=== PATIENT | male | born 1985 | race African-American/Black ===

== ENCOUNTER 2019-07-13 15:36 | Emergency (ER) | payer SELFPAY ==
--- NOTE | 2019-07-13 16:12 | RAD REPORT ---
EXAM DESCRIPTION: RAD - Chest Single View - 07/13/2019 4:05 pm CLINICAL HISTORY: CHEST PAIN Chest pain. COMPARISON: No comparisons FINDINGS: Portable technique limits examination quality. The lungs are grossly clear. The heart is normal in size. No displaced fractures. IMPRESSION: No acute intrathoracic process suspected.
[2019-07-13 16:33] LABS: Absolute Lymphocytes (CBC) 1.8 K/uL (0.7-4.9); Hematocrit 41.2 % (39.6-49.0); Lymphocytes % 23.5 % (15.3-44.8); MPV 7.2 fL (7.6-11.3); RBC Red Blood Cell Count 4.32 M/uL (4.33-5.43)
[2019-07-13 16:37] LABS: Protime INR 0.96
[2019-07-13 16:54] LABS: ALT/SGPT 34 U/L (12-78); AST/SGOT 24 U/L (15-37); Albumin 3.2 g/dL (3.4-5.0); Alkaline Phosphatase 91 U/L (45-117); BUN Blood Urea Nitrogen 13 mg/dL (7-18); Bicarbonate 26 mmol/L (21-32); Bilirubin Direct < 0.1 mg/dL (0-0.2); Bilirubin Total 0.2 mg/dL (0.2-1.0); Creatine Phosphokinase 235 U/L (39-308); Glucose Level 110 mg/dL (74-106); Magnesium 2.1 mg/dL (1.8-2.4); NT PRO-BNP 7 pg/mL (<125); Potassium 4.1 mmol/L (3.5-5.1); Protein, Total 6.4 g/dL (6.4-8.2); Sodium Level 138 mmol/L (136-145); Troponin (Emerg Dept Use Only) < 0.02 ng/mL (0.0-0.045)
--- NOTE | 2019-07-13 17:15 | EKG ---
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
[2019-07-13] MEDS ORDERED: CYCLOBENZAPRINE 10 MG TAB ONE (17:24)
[2019-07-13] MEDS ORDERED: NA CHLORIDE 0.9% 1,000 ML ONE (17:24)
--- NOTE | 2019-07-13 19:14 | EDPHYS ---
Physician Documentation [facility] Name: Isauro Meza Age: 34 yrs Sex: Male : 1985 Arrival Date: 07/13/2019 Time: 15:39 Bed 5 Private MD: ED Physician Tony Mcduffie HPI: 07/13 16:21 This 34 yrs old Black Male presents to ER via EMS with complaints of syncope. 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 Onset: The snw symptoms/episode began/occurred suddenly, just prior to arrival. Severity of symptoms: At their worst the symptoms were moderate. The patient has not experienced similar symptoms in the past. The patient has not recently seen a physician. hx of migraines, "I take Excedrin all day every day". Historical: - Allergies: 15:43 No Known Allergies; ph - Home Meds: 15:43 None [Active]; ph - PMHx: 15:43 None; ph - PSHx: 15:43 Hernia repair; elbow; ph - Immunization history:: Adult Immunizations unknown. - Social history:: Smoking status: Patient uses tobacco products, denies chronic smoking, but will smoke occasionally. - Ebola Screening: : No symptoms or risks identified at this time. ROS: 16:20 Constitutional: Negative for fever, chills, and weight loss, Eyes: Negative for injury, snw pain, redness, and discharge, ENT: Negative for injury, pain, and discharge, Neck: Negative for injury, pain, and swelling, Cardiovascular: Negative for chest pain, palpitations, and edema, Respiratory: Negative for shortness of breath, cough, wheezing, and pleuritic chest pain, Abdomen/GI: Negative for abdominal pain, nausea, vomiting, diarrhea, and constipation, Back: Negative for injury and pain, : Negative for injury, bleeding, discharge, and swelling, MS/Extremity: Negative for injury and deformity, Skin: Negative for injury, rash, and discoloration. 16:20 Neuro: Positive for syncope. Exam: 16:20 Head/Face: Normocephalic, atraumatic. Eyes: Pupils equal round and reactive to light, snw extra-ocular motions intact. Lids and lashes normal. Conjunctiva and sclera are non-icteric and not injected. Cornea within normal limits. Periorbital areas with no swelling, redness, or edema. ENT: Nares patent. No nasal discharge, no septal abnormalities noted. Tympanic membranes are normal and external auditory canals are clear. Oropharynx with no redness, swelling, or masses, exudates, or evidence of obstruction, uvula midline. Mucous membranes moist. Neck: Trachea midline, no thyromegaly or masses palpated, and no cervical lymphadenopathy. Supple, full range of motion without nuchal rigidity, or vertebral point tenderness. No Meningismus. Chest/axilla: Normal chest wall appearance and motion. Nontender with no deformity. No lesions are appreciated. Cardiovascular: Regular rate and rhythm with a normal S1 and S2. No gallops, murmurs, or rubs. Normal PMI, no JVD. No pulse deficits. Respiratory: Lungs have equal breath sounds bilaterally, clear to auscultation and percussion. No rales, rhonchi or wheezes noted. No increased work of breathing, no retractions or nasal flaring. 16:20 Back: No spinal tenderness. No costovertebral tenderness. Full range of motion. Skin: Warm, dry with normal turgor. Normal color with no rashes, no lesions, and no evidence of cellulitis. MS/ Extremity: Pulses equal, no cyanosis. Neurovascular intact. Full, normal range of motion. Neuro: Awake and alert, GCS 15, oriented to person, place, time, and situation. Cranial nerves II-XII grossly intact. Motor strength 5/5 in all extremities. Sensory grossly intact. Cerebellar exam normal. Normal gait. Psych: Awake, alert, with orientation to person, place and time. Behavior, mood, and affect are within normal limits. 16:20 Constitutional: The patient appears alert, anxious, uncomfortable, unkempt. 16:20 Abdomen/GI: Inspection: abdomen appears normal, Bowel sounds: normal, Palpation: mild abdominal tenderness, in all quadrants. Vital Signs: 15:41 BP 144 / 85; Pulse 85; Resp 18; Temp 98.5(TE); Pulse Ox 100% on R/A; Weight 83.91 kg; ph Height 5 ft. 10 in. (177.80 cm); 17:37 BP 131 / 87; Pulse 78; Resp 18; Pulse Ox 99% on R/A; ph 18:24 BP 140 / 88 Supine; Pulse 70; ph 18:24 BP 134 / 85 Sitting; Pulse 74; ph 18:24 BP 143 / 84 Standing; Pulse 76; Resp 18; Pulse Ox 98% on R/A; ph 19:25 BP 144 / 84; Pulse 72; Resp 16 S; Pulse Ox 99% on R/A; ca1 15:41 Body Mass Index 26.54 (83.91 kg, 177.80 cm) ph MDM: 16:03 Patient medically screened. snw 19:15 Data reviewed: vital signs, nurses notes. Data interpreted: Pulse oximetry: on room air snw is 98 %. Interpretation: normal. Counseling: I had a detailed discussion with the patient and/or guardian regarding: the historical points, exam findings, and any diagnostic results supporting the discharge/admit diagnosis, the presence of at least one elevated blood pressure reading (>120/80) during this emergency department visit, lab results, radiology results, the need for outpatient follow up, to return to the emergency department if symptoms worsen or persist or if there are any questions or concerns that arise at home. Special discussion: Based on the history and exam findings, there is no indication for further emergent testing or inpatient evaluation. I discussed with the patient/guardian the need to see the equity sales assistant for further evaluation of the symptoms. I discussed with the patient/guardian the need to see the primary care provider for further evaluation of the symptoms. 07/13 15:49 Order name: Basic Metabolic Panel; Complete Time: 16:58 snw 07/13 15:49 Order name: CBC with Diff; Complete Time: 16:58 snw 07/13 15:49 Order name: LFT's; Complete Time: 16:58 snw 07/13 15:49 Order name: Magnesium; Complete Time: 16:58 snw 07/13 15:49 Order name: NT PRO-BNP; Complete Time: 16:58 snw 07/13 15:49 Order name: PT-INR; Complete Time: 16:58 snw 07/13 15:49 Order name: Troponin (emerg Dept Use Only); Complete Time: 16:58 snw 07/13 15:49 Order name: XRAY Chest (1 view); Complete Time: 16:17 snw 07/13 15:49 Order name: EKG; Complete Time: 15:50 snw 07/13 15:49 Order name: CPK; Complete Time: 16:58 snw 07/13 16:13 Order name: ASA; Complete Time: 17:14 snw 07/13 18:36 Order name: Troponin (emerg Dept Use Only); Complete Time: 19:13 snw 07/13 15:49 Order name: Cardiac monitoring; Complete Time: 16:24 snw 07/13 15:49 Order name: EKG - Nurse/Tech; Complete Time: 16:34 snw 07/13 15:49 Order name: IV Saline Lock; Complete Time: 16:25 snw 07/13 15:49 Order name: Labs collected and sent; Complete Time: 16:25 snw 07/13 15:49 Order name: O2 Per Protocol; Complete Time: 16:25 snw 07/13 15:49 Order name: O2 Sat Monitoring; Complete Time: 16:25 snw 07/13 18:36 Order name: EKG; Complete Time: 18:37 snw Administered Medications: 17:30 Drug: NS 0.9% 1000 ml Route: IV; Rate: 1 bolus; Site: right antecubital; ph 17:30 Drug: Flexeril 10 mg Route: PO; ph Disposition: 07/14 07:13 Co-signature as Attending Physician, Tony Mcduffie MD I agree with the assessment and kdr plan of care. Disposition: 07/13/19 19:14 Discharged to Home. Impression: Volume depletion, Syncope and collapse. - Condition is Stable. - Discharge Instructions: Dehydration, Adult, Hypertension, Syncope, Rehydration, Adult. - Medication Reconciliation Form, Thank You Letter, Antibiotic Education, Prescription Opioid Use form. - Follow up: Private Physician; When: 2 - 3 days; Reason: Recheck today's complaints, Continuance of care, Re-evaluation by your physician. Follow up: Emergency Department; When: As needed; Reason: Worsening of condition. Signatures: Dispatcher [employer] Tony Beauchamp MD MD kdr Therrien, Shelly, DRYER OPERATOR-C DRYER OPERATOR-Csnw Angi Parks RN RN ph Acob, Clarita RN RN ca1 Corrections: (The following items were deleted from the chart) 07/13 19:36 19:14 07/13/2019 19:14 Discharged to Home. Impression: Volume depletion; Syncope and ca1 collapse. Condition is Stable. Forms are Medication Reconciliation Form, Thank You Letter, Antibiotic Education, Prescription Opioid Use. Follow up: Private Physician; When: 2 - 3 days; Reason: Recheck today's complaints, Continuance of care, Re-evaluation by your physician. Follow up: Emergency Department; When: As needed; Reason: Worsening of condition. snw
--- NOTE | 2019-07-13 19:14 | ER ---
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 Transition of care: patient was not received from another setting of care. Onset of symptoms was July 13, 2019. Risk Assessment: Do you want to hurt yourself or someone else? Patient reports no desire to harm self or others. Initial Sepsis Screen: Does the patient meet any 2 criteria? No. Patient's initial sepsis screen is negative. Does the patient have a suspected source of infection? No. Patient's initial sepsis screen is negative. Care prior to arrival: IV initiated. 20 GA, in the right antecubital area, Glucose check: 107. 15:39 Method Of Arrival: EMS: [facility] ph 15:39 Acuity: CHRISTINA 3 ph Historical: - Allergies: 15:43 No Known Allergies; ph - Home Meds: 15:43 None [Active]; ph - PMHx: 15:43 None; ph - PSHx: 15:43 Hernia repair; elbow; ph - Immunization history:: Adult Immunizations unknown. - Social history:: Smoking status: Patient uses tobacco products, denies chronic smoking, but will smoke occasionally. - Ebola Screening: : No symptoms or risks identified at this time. Screenin:44 Abuse screen: Denies threats or abuse. Denies injuries from another. Nutritional ph screening: No deficits noted. Tuberculosis screening: No symptoms or risk factors identified. Fall Risk None identified. Assessment: 15:44 General: Appears in no apparent distress. comfortable, well groomed, Behavior is calm, ph cooperative, appropriate for age. Pain: Complains of pain in back, right arm, left arm, right leg and left leg. Neuro: Level of Consciousness is awake, alert, obeys commands, Oriented to person, place, time, situation, Reports a syncopal episode. Cardiovascular: Capillary refill < 3 seconds in bilateral fingers Patient's skin is warm and dry. Respiratory: Airway is patent Respiratory effort is even, unlabored, Respiratory pattern is regular, symmetrical. GI: Patient currently denies abdominal pain, diarrhea, nausea, vomiting. Derm: Skin is intact, is healthy with good turgor, Skin is dry, Skin is normal. Musculoskeletal: Circulation, motion, and sensation intact. Range of motion: intact in all extremities. 17:38 Reassessment: Patient appears in no apparent distress at this time. Patient and/or ph family updated on plan of care and expected duration. Pain level reassessed. Patient is alert, oriented x 3, equal unlabored respirations, skin warm/dry/pink. Pt ambulated to restroom w/ steady gait, denies dizziness or SOB. 18:30 Reassessment: Patient appears in no apparent distress at this time. Patient is alert, ph oriented x 3, equal unlabored respirations, skin warm/dry/pink. 19:35 Reassessment: Patient appears in no apparent distress at this time. Patient is alert, ca1 oriented x 3, equal unlabored respirations, skin warm/dry/pink. Vital Signs: 15:41 BP 144 / 85; Pulse 85; Resp 18; Temp 98.5(TE); Pulse Ox 100% on R/A; Weight 83.91 kg; ph Height 5 ft. 10 in. (177.80 cm); 17:37 BP 131 / 87; Pulse 78; Resp 18; Pulse Ox 99% on R/A; ph 18:24 BP 140 / 88 Supine; Pulse 70; ph 18:24 BP 134 / 85 Sitting; Pulse 74; ph 18:24 BP 143 / 84 Standing; Pulse 76; Resp 18; Pulse Ox 98% on R/A; ph 19:25 BP 144 / 84; Pulse 72; Resp 16 S; Pulse Ox 99% on R/A; ca1 15:41 Body Mass Index 26.54 (83.91 kg, 177.80 cm) ph ED Course: 15:39 Patient arrived in ED. ph 15:41 Triage completed. ph 15:43 Arm band placed on Patient placed in an exam room, on a stretcher, on pulse oximetry. ph 15:44 Patient has correct armband on for positive identification. Bed in low position. Call ph light in reach. Side rails up X 1. Pulse ox on. NIBP on. Door closed. Noise minimized. Warm blanket given. 15:46 Maintain EMS IV. Dressing intact. Good blood return noted. Site clean \T\ dry. Gauge \T\ ph site: 20 RAC. 15:47 Saundra Vidal FNP-C is [facility]. snw 15:47 Tony Mcduffie MD is Attending Physician. snw 16:03 X-ray completed. Portable x-ray completed in exam room. Patient tolerated procedure kw well. 16:05 XRAY Chest (1 view) In Process Unspecified. EDMS 16:06 Angi Parks, RN is Primary Nurse. ph 16:08 EKG done, by evidence technician. reviewed by Saundra ALLEN. sm3 17:38 No provider procedures requiring assistance completed. ph 18:44 Troponin (emerg Dept Use Only) Sent. iw 19:36 IV discontinued, intact, bleeding controlled, No redness/swelling at site. Pressure ca1 dressing applied. Administered Medications: 17:30 Drug: NS 0.9% 1000 ml Route: IV; Rate: 1 bolus; Site: right antecubital; ph 17:30 Drug: Flexeril 10 mg Route: PO; ph Outcome: 19:14 Discharge ordered by MD. snw 19:36 Discharged to home ambulatory. ca1 19:36 Condition: stable 19:36 Discharge instructions given to patient, Instructed on discharge instructions, follow up and referral plans. Demonstrated understanding of instructions, follow-up care. 19:36 Patient left the ED. ca1 Signatures: Dispatcher [employer] [facility] Saundra Vidal FNP-C DRAWING IN MACHINE TENDER-Csnw Maureen Wylie RN RN Dipti Koo Angi Parks, RN ANTELMO Mary Dyson 3 Clarita Florian RN RN ca1
[2019-07-13 19:52] VITALS: TEMP 98.5
[2019-07-13 19:56] VITALS: BP 144/84; O2SAT 99
--- NOTE | 2019-07-14 06:12 | EKG ---
Test Date: 2019-07-13 Test Time: 19:00:14 Caustic Mixer: ULISES MEASUREMENT RESULTS: Intervals: Rate: 61 FL: 154 QRSD: 94 QT: 388 QTc: 390 [place]: P: 39 FL: 154 QRS: 79 T: 25 INTERPRETIVE STATEMENTS: Normal sinus rhythm normal ECG Compared to ECG 07/13/2019 15:57:22 No significant changes Electronically Signed On 07-14-19 06:11:46 CDT by Eric Carlson
== END 2019-07-13 19:36 | disposition home or self-care (01) ==
LOC: ER 15:36
DX: E86.9 Volume depletion, unspecified (principal); Z72.0 Tobacco use
CPT/HCPCS: 36415; 71045; 80048; 80076; 80329; 82550; 83735; 83880; 84484; 85025; 85610; 93005; 99284; J7030